=== PATIENT | male | born 1980 | race Caucasian/White ===

== ENCOUNTER → 2019-08-07 | Outpatient (REF) | payer OTHER ==
[2019-08-07 12:31] LABS: THYROID STIMULATING HORMONE 0.307 uIU/ML (0.358-3.740)
[2019-08-07 14:34] LABS: FREE T4 1.06 NG/DL (0.76-1.46)
== END ==
LOC: M SFHCCLAY 08:11
PROVIDERS: ATTEND Family Medicine
DX: E66.09 Other obesity due to excess calories (principal); Z68.35 Body mass index [BMI] 35.0-35.9, adult; R45.4 Irritability and anger

== ENCOUNTER → 2020-03-25 | Outpatient (REF) | payer BC | LOC: M SFHCCLAY 15:43 | PROVIDERS: ATTEND Family Medicine | DX: Z84.0 Family history of diseases of the skin and subcutaneous tissue (principal) ==

== ENCOUNTER → 2020-03-29 | Outpatient (REF) | payer BC | LOC: M SFHCCLAY 08:50 | PROVIDERS: ATTEND Family Medicine | DX: Z84.0 Family history of diseases of the skin and subcutaneous tissue (principal) ==

== ENCOUNTER → 2020-12-30 | Outpatient (REF) | payer BC, OTHER ==
[2020-12-30 12:13] LABS: ALBUMIN 3.8 GM/DL (3.2-5.2); ALT/SGPT 25 U/L (12-78); BILIRUBIN,TOTAL 0.5 MG/DL (0.2-1.0); BLOOD UREA NITROGEN 16 MG/DL (7-18); CALCIUM LEVEL 9.1 MG/DL (8.5-10.1); CARBON DIOXIDE LEVEL 29 MEQ/L (21-32); CHLORIDE LEVEL 108 MEQ/L (98-107); CHOLESTEROL LEVEL 163 MG/DL (<200); CREATININE FOR GFR 1.01 MG/DL (0.70-1.30); GLOMERULAR FILTRATION RATE > 60.0 (>60); GLUCOSE, FASTING 78 MG/DL (70-100); HDL CHOLESTEROL 43 MG/DL (>40); LDL CHOLESTEROL 107 MG/DL (<100); NON-HDL-C 120 MG/DL; POTASSIUM SERUM 4.8 MEQ/L (3.5-5.1); SODIUM LEVEL 141 MEQ/L (136-145); TOTAL PROTEIN 6.7 GM/DL (6.4-8.2); TRIGLYCERIDES LEVEL 63 MG/DL (<150)
== END ==
LOC: M SFHCCLAY 09:04
PROVIDERS: ATTEND Family Medicine
DX: Z00.00 Encounter for general adult medical examination without abnormal findings (principal); Z13.220 Encounter for screening for lipoid disorders; Z13.1 Encounter for screening for diabetes mellitus

== ENCOUNTER → 2022-03-13 | Outpatient (REF) | payer OTHER ==
[2022-03-13 18:16] LABS: BLOOD UREA NITROGEN 14 MG/DL (9-23); CALCIUM LEVEL 8.9 MG/DL (8.5-10.1); CARBON DIOXIDE LEVEL 31 MMOL/L (20-31); CHLORIDE LEVEL 102 MMOL/L (98-107); CHOLESTEROL LEVEL 140 MG/DL (<200); CHOLESTEROL RISK RATIO 3.55 (<5); CREATININE FOR GFR 0.99 MG/DL (0.70-1.30); GLOMERULAR FILTRATION RATE > 60.0 (>60); GLUCOSE, FASTING 79 MG/DL (60-100); HDL CHOLESTEROL 39.4 MG/DL (>40); LDL CHOLESTEROL 68.2 MG/DL (<100); NON-HDL-C 101 MG/DL; POTASSIUM SERUM 4.5 MMOL/L (3.5-5.1); SODIUM LEVEL 138 MMOL/L (136-145); TRIGLYCERIDES LEVEL 162 MG/DL (<150)
== END ==
LOC: M SFHCCLAY 13:19
PROVIDERS: ATTEND Nurse Practitioner Family
DX: Z00.00 Encounter for general adult medical examination without abnormal findings (principal); Z68.32 Body mass index [BMI] 32.0-32.9, adult; Z13.220 Encounter for screening for lipoid disorders

== ENCOUNTER 2023-12-26 08:06 | Day surgery (SDC) | payer BC ==
[~2023-12-26] VITALS: Ht 175.3 cm; Wt 90.7 kg
[~2023-12-26 08:06] MED LIST: NS 250 ML IV ONE; THERTAB52 PO
[2023-12-26] MEDS ORDERED: propofoL 200 MG/20 ML VIAL As Ordered ONE (08:31)
[2023-12-26] MEDS ORDERED: PHENYLephrine 500MCG 5ML (100MCG/ML) SYRINGE As Ordered ONE (08:37)
[2023-12-26 08:47] VITALS: TEMP 98.4
[2023-12-26 09:03] VITALS: BP 113/70; O2SAT 98
== END 2023-12-26 09:09 | disposition home or self-care (01) ==
LOC: M OPP 08:06
PROVIDERS: ATTEND Surgery
DX: Z12.11 Encounter for screening for malignant neoplasm of colon (principal); Z12.12 Encounter for screening for malignant neoplasm of rectum; K64.0 First degree hemorrhoids; K57.30 Diverticulosis of large intestine without perforation or abscess without bleeding; Z88.0 Allergy status to penicillin
CPT/HCPCS: 45378; J2371

== ENCOUNTER → 2024-06-25 | Outpatient (REF) | payer BC ==
[~2024-06-25] MED LIST changes: -NS 250 ML IV ONE
[2024-06-25 17:32] LABS: ALBUMIN 4.1 G/DL (3.2-5.2); ALKALINE PHOSPHATASE 66 U/L (40-129); ALT/SGPT 37 U/L (7.0-40); AST/SGOT 15 U/L (<34); BILIRUBIN,TOTAL 0.7 MG/DL (0.3-1.2); BLOOD UREA NITROGEN 16 MG/DL (9-23); CALCIUM LEVEL 9.2 MG/DL (8.5-10.1); CARBON DIOXIDE LEVEL 32 MMOL/L (20-31); CHLORIDE LEVEL 102 MMOL/L (98-107); CHOLESTEROL LEVEL 172 MG/DL (<200); CREATININE FOR GFR 0.87 MG/DL (0.70-1.30); GLOMERULAR FILTRATION RATE > 90.0 (>60); GLUCOSE, FASTING 79 MG/DL (60-100); HDL CHOLESTEROL 41.9 MG/DL (>40); LDL CHOLESTEROL 101.5 MG/DL (<100); NON-HDL-C 130.1 MG/DL; POTASSIUM SERUM 4.2 MMOL/L (3.5-5.1); SODIUM LEVEL 142 MMOL/L (136-145); TOTAL PROTEIN 6.8 G/DL (5.7-8.2); TRIGLYCERIDES LEVEL 143 MG/DL (<150)
[2024-06-25 17:34] LABS: FREE T4 1.37 NG/DL (0.89-1.76); THYROID STIMULATING HORMONE 0.381 uIU/ML (0.55-4.78)
== END ==
LOC: M SFHCCLAY 11:26
PROVIDERS: ATTEND Nurse Practitioner Family
DX: E66.09 Other obesity due to excess calories (principal)